=== PATIENT | male | born 2000 | race African-American/Black ===

== ENCOUNTER 2024-01-13 13:06 | Emergency (ER) | payer OTHER, SELFPAY ==
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
[2024-01-13 13:06] VITALS: BP 133/77; PULSE 77; RESP 18; TEMP 36.3; O2SAT 100
--- NOTE | 2024-01-13 13:10 | ECG_ITS ---
Test Date: 2024-01-13 13:23:18 Measurements Intervals [place] Rate: 66 P: 69 [place]: 150 QRS: 70 QRSD: 90 T: 30 QT: 369 QTc: 389 Interpretive Statements SINUS RHYTHM WITH SINUS ARRHYTHMIA BORDERLINE T WAVE ABNORMALITY- ANTERIOR LEADS BASELINE ARTIFACT- I, III, AVR, AVL, AVF, V1-V2, V6 BORDERLINE ECG No previous ECG available for comparison Electronically Signed On 01-13-2024 14:06:13 V BELT INSPECTOR by Frankie Zhong D.O.
[2024-01-13] MEDS: HYDROmorphone HCL INJ (*CRX) 1 MG/ML SYR IV PUSH (13:20)
[2024-01-13] MEDS: SODIUM CHLORIDE 0.9% IV 1,000 ML 999 ML IV CONT (13:20)
[2024-01-13 13:31] VITALS: BP 134/73; PULSE 73; RESP 15; O2SAT 100
[2024-01-13 14:01] VITALS: BP 150/79; PULSE 76; RESP 11; O2SAT 100
[2024-01-13 14:31] VITALS: BP 149/87; PULSE 78; RESP 17; O2SAT 100
[2024-01-13 14:32] LABS: Add Urine Microscopic? NO; Appearance Urine Clear (Clear); Bilirubin Urine Negative (Negative); Blood Urine Negative (Negative); Color Urine Yellow (Yellow); Glucose Urine UA Negative (Negative); Ketones Urine Negative (Negative); Leukocyte Esterase Ur Negative LEU/UL (Negative); Nitrate Urine Negative (Negative); Protein Urine Negative (Negative); Urobilinogen Urine 0.2 mg/dL (<2.0)
[2024-01-13 14:37] LABS: Basophils Absolute Auto 0.1 K/mm3 (0.0-0.1); Basophils Percent Auto 0.7 % (0.2-1.2); Eosinophils Absolute Auto 0.1 K/mm3 (0-0.3); Hemoglobin 16.3 g/dL (14.0-18.0); Immature Granulocyte Absolute 0.03 K/mm3 (0.00-0.031); Immature Granulocyte Percent A 0.3 % (0-0.5); Lymphocytes Absolute Auto 2.82 K/mm3 (0.9-3.2); Lymphocytes Percent Auto 31.2 % (18.3-44.2); Mean Corpuscular HGB Conc 34.7 g/dl (32-36); Mean Corpuscular Hemoglobin 32.9 pg (26-34); Mean Corpuscular Volume 94.9 fl (80-100); Mean Platelet Volume 10.1 fl (7.4-10.4); Monocytes Absolute Auto 1.1 K/mm3 (0.1-0.6); Monocytes Percent Auto 12.1 % (2.6-8.5); Neutrophils Absolute Auto 4.9 K/mm3 (1.3-6.7); Neutrophils Percent Auto 54.7 % (45.5-73.1); Platelet Count Result 273 k/mm3 (150-375); Red Blood Count 4.95 M/mm3 (4.6-6.20); Red Cell Distribution Width 12.5 % (11.5-14.5)
[2024-01-13 14:48] LABS: Amphetamine Screen Urine Negative (Negative); Barbiturate Screen Urine Negative (Negative); Benzodiazepines Screen Urine Negative (Negative); Cannabinoid Screen Urine Positive (Negative); Cocaine Screen Urine Negative (Negative); Methadone Screen Urine Negative (Negative); Opiate Screen Urine Negative (Negative); Phencyclidine Screen Urine Negative (Negative)
[2024-01-13 14:48] LABS: Alanine Aminotransferase 29 U/L (6-50); Albumin Level 4.9 g/dL (3.5-5.1); Alkaline Phosphatase 79 U/L (38-126); Anion Gap 10 mmol/L (4-12); Aspartate Amino Transferase 48 U/L (17-59); Bilirubin,Total 0.4 mg/dL (0.2-1.3); Blood Urea Nitrogen 16 mg/dL (9-20); Carbon Dioxide 25 mmol/L (22-30); Chloride 103 mmol/L (98-107); Estimated CRCL calculation 77 ml/min; Estimated Glomerular Filt Rate > 60; Glucose 103 mg/dL (65-110); Lipase 121 U/L (23-300); Magnesium 2.1 mg/dL (1.6-2.3); Potassium 4.8 mmol/L (3.4-5.0); Sodium 138 mmol/L (137-145)
[2024-01-13 14:52] LABS: Ethanol 22 mg/dL (<10)
[2024-01-13 14:56] LABS: INR 0.9; Prothrombin Time 12.5 Seconds (11.1-14.7)
[2024-01-13 14:57] LABS: Partial Thromboplastin Time 26.6 Seconds (22.3-36.8)
[2024-01-13 14:59] LABS: Troponin I < 0.012 ng/mL (0.000-0.034)
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
[2024-01-13 16:20] VITALS: BP 134/85; PULSE 76; RESP 20; O2SAT 98
== END 2024-01-13 16:21 | disposition home or self-care (01) ==
PROVIDERS: Emergency Provider Emergency Medicine
DX: R10.32 Left lower quadrant pain (principal); V43.52XA Car driver injured in collision with other type car in traffic accident, initial encounter
CPT/HCPCS: 36415; 70450; 71045; 72125; 72170; 74177; 80053; 80307; 81003; 82077; 83690; 83735; 84484; 85025; 85610; 85730; 93005; 96361; 96374; 99284; J1171; J7030; Q9967